=== PATIENT | female | born 1945 | race African-American/Black ===

== ENCOUNTER 2016-11-09 15:43 | Emergency (ER) | payer MEDICARE, MEDICAID ==
[~2016-11-09] VITALS: Ht 162.6 cm; Wt 83.5 kg
[~2016-11-09 15:43] MED LIST: AMLO-218 PO; ASP81 PO; FAMO20TA18 PO; LOSA100T47 PO; METO100T13 PO; SIMV20TA97 PO
[2016-11-09 15:47] VITALS: Ht 162.6 cm; Wt 83.5 kg
[2016-11-09] MEDS ORDERED: predniSONE 20 MG TAB PO STA (16:37)
[2016-11-09] MEDS ORDERED: ALBUTEROL 0.5% (NEB) 2.5 MG/0.5 ML AMP NEB STA (16:37)
[2016-11-09] MEDS ORDERED: IPRATROPIUM (NEB) 0.5 MG/2.5 ML AMP NEB STA (16:37)
--- NOTE | 2016-11-09 17:34 | ERD ---
ER Documentation Chief Complaint Date/Time DATE: 11/09/16 TIME: 17:32 Chief Complaint WHEEZING AND FEVER HPI This is a 71-year-old female who presents to the emergency room for evaluation of wheezing. According to the patient's family member was at bedside this patient has been wheezing for the past 2 days. She states the patient does have a fever which is periodic, and the patient was brought to the ER for evaluation. She states that last sentence patient had the symptoms she was diagnosed with bronchitis. Patient has been using her nephew's albuterol inhaler with mild relief of her wheezing ROS All systems reviewed and are negative except as per history of present illness. Medications Home Meds Active Scripts Famotidine* (Famotidine*) 20 Mg Tablet, 20 MG PO Q12 for 30 Days, #60 TAB Prov:JANETH FUCHS M.D. 03/28/16 Aspirin (Aspirin) 81 Mg Chew, 81 MG PO DAILY for 30 Days, #30 TAB Prov:JANETH FUCHS M.D. 03/28/16 Reported Medications Losartan Potassium* (Cozaar*) 100 Mg Tablet, 100 MG PO DAILY, #30 TAB 03/27/16 Simvastatin* (Zocor*) 20 Mg Tablet, 20 MG PO QHS, #30 TAB 03/27/16 Amlodipine Besylate* (Norvasc*) 10 Mg Tablet, 10 MG PO DAILY, TAB 03/27/16 Metoprolol Succinate* (Toprol XL*) 100 Mg Tab.sr.24h, 100 MG PO DAILY, #30 TAB 03/27/16 Allergies Allergies: Coded Allergies: No Known Allergy (Unverified , 03/27/16) PMhx/Soc History of Surgery: No Anesthesia Reaction: No Hx Neurological Disorder: No Hx Respiratory Disorders: No Hx Cardiac Disorders: Yes (HTN, HYPERCHOLESTEROL) Hx Psychiatric Problems: No Hx Miscellaneous Medical Probl: No Hx Alcohol Use: No Hx Substance Use: No Hx Tobacco Use: No Physical Exam Vitals Vital Signs Date Time Temp Pulse Resp B/P Pulse Ox O2 Delivery O2 Flow Rate FiO2 11/09/16 16:46 60 20 96 21 11/09/16 15:47 98.0 58 18 162/72 95 Physical Exam Const: No acute distress Head: Atraumatic Eyes: Normal Conjunctiva ENT: Normal External Ears, Nose and Mouth. Neck: Full range of motion..~ No meningismus. Resp: Wheezing auscultated in the bilateral upper and lower lobes Cardio: Regular rate and rhythm, no murmurs Abd: Soft, non tender, non distended. Normal bowel sounds Skin: No petechiae or rashes Back: No midline or flank tenderness Ext: No cyanosis, or edema Neur: Awake and alert Psych: Normal Mood and Affect Results 24 hrs Current Medications Medications (Trade) Dose Ordered Sig/Dirk Route PRN Reason Start Time Stop Time Status Last Admin Dose Admin Albuterol (Proventil 0.5% (Neb)) 5 mg ONCE STAT NEB 11/09/16 16:37 11/09/16 16:38 DC 11/09/16 16:45 Ipratropium [place] (Atrovent 0.02% (Neb)) 0.5 mg ONCE STAT NEB 11/09/16 16:37 11/09/16 16:38 DC 11/09/16 16:44 Prednisone (Prednisone) 60 mg ONCE STAT PO 11/09/16 16:37 11/09/16 16:38 DC 11/09/16 16:44 Procedures/MDM This 71-year-old female presents to the ER for evaluation of wheezing. When I evaluated her this patient did have wheezing on my examination. The patient was given a breathing treatment with albuterol, Atrovent. This patient also receives p.o. prednisone. On my reexamination this patient she is sitting in bed in no acute distress, her pulse ox is 100%. Her wheezing has significantly subsided. This patient will be discharged home at this time with a prescription for ProAir air, and prednisone. Patient is influenza negative. Departure Diagnosis: Primary Impression: Acute bronchitis Additional Impression: Wheezing Condition: Stable JARRETT RATLIFF DO Nov 09, 2016 17:34
[2016-11-09] MEDS ORDERED: PRED20TA PO (17:35)
[2016-11-09] MEDS ORDERED: ALBU8.5H3 INH (17:35)
[2016-11-09 17:41] VITALS: BP 140/69; PULSE 56; RESP 18; TEMP 98.3
== END 2016-11-09 17:42 | disposition home or self-care (01) ==
LOC: FTE 15:43
DX: J20.9 Acute bronchitis, unspecified (principal); I10 Essential (primary) hypertension; Z79.82 Long term (current) use of aspirin
CPT/HCPCS: 87400; 94664; 99284; J7512

== ENCOUNTER 2016-11-14 10:51 | Emergency (ER) | payer MEDICARE, MEDICAID ==
[~2016-11-14] VITALS: Wt 78.0 kg
[~2016-11-14 10:51] MED LIST changes: +ALBU8.5H3 INH; -ASP81 PO; +ASPI81TA3 PO; +PRED20TA PO; +SIMV20TA PO; -SIMV20TA97 PO
--- NOTE | 2016-11-14 11:52 | RADRPT ---
PROCEDURE: XR Chest. CLINICAL INDICATION: Productive cough. TECHNIQUE: Single frontal view. COMPARISON: 03/27/2016. FINDINGS: The heart is enlarged. There is calcification in the aorta consistent with atherosclerosis. The lungs are clear. There is no pleural effusion. There is no pneumothorax. IMPRESSION: 1. Cardiomegaly and atherosclerosis. 2. Clear lungs. RPTAT: QQ .Josesito Gutiérrez MD, MD Date Time Electronically viewed and signed by .Josesito Gutiérrez MD, MD on 11/14/2016 11:52 .R/
[2016-11-14] MEDS ORDERED: PRED20TA PO (11:59)
[2016-11-14] MEDS ORDERED: DOXY100T20 PO (11:59)
--- NOTE | 2016-11-14 17:17 | ERD ---
DATE OF SERVICE: HISTORY OF PRESENT ILLNESS: The patient is a 71-year-old female coming in complaining of a cough fo r 2 weeks. Patient was seen here 4 days ago and was given prednisone inhaler but daughter states th at she is still continuing having shortness of breath. She denies any cardiac history, she has not taken antibiotics. She denies any leg swelling, no hemoptysis. No recent travel. She has had tacti le fevers. No history of recent surgery. No cancer history. SOCIAL HISTORY: She does smoke 10 cigarettes a day. MEDICAL PROBLEMS: Hypertension. ALLERGIES TO MEDICATIONS: DENIES. SURGICAL HISTORY: Hysterectomy. REVIEW OF SYSTEMS: A 12-point review of systems was done. Refer to HPI for positives, all other sy stems negative. PHYSICAL EXAMINATION VITAL SIGNS: Temperature 98, pulse 68, blood pressure 171/71, respiratory 18, O2 saturation 99% on room air. Pain intensity is 0/10. GENERAL: The patient is well-appearing, well-nourished, no acute distress. HEENT: Atraumatic. Conjunctivae are pink. Pupils equal, round, and reactive to light. There is no s cleral icterus. Tympanic membranes clear bilaterally. Oropharynx clear. No nystagmus or photophobia . LUNGS: The patient has coarse breath sounds heard throughout. There is no focal rhonchi, no wheezi ng. Breath sounds heard in all lung noriega. No stridor, no trismus and no drooling. CHEST: Clear to auscultation bilaterally. There are no rales, wheezes or rhonchi. EXTREMITIES: There is no pitting edema noted to bilateral lower extremities. Pulses are intact. BACK: No midline or flank tenderness. SKIN: There is no apparent rash or petechia. The skin is warm and dry. EMERGENCY ROOM COURSE: The patient had a 1-view chest x-ray done in the ER which showed cardiomegal y and atherosclerosis, otherwise clear lungs. DIAGNOSIS: Bronchitis with antibiotic treatment. MEDICAL DECISION MAKING: Patient did have coarse breath sounds heard on auscultation. I will treat patient with antibiotics; however, patient is afebrile. The patient's oxygen saturation was reeval uated and she continued to be 99% with walking on room air. I have low suspicion for a CHF as patie nt does not have abnormal findings on chest x-ray and patient does not have lower pitting edema to t he extremities. I have low suspicion for PE. The patient is not tachycardic. She is not complaini ng of hemoptysis or pleuritic chest pain and I do not feel there is indication for blood work or fur ther evaluation. I have low suspicion for sepsis. Patient was given antibiotics and told to have c lose followup with primary doctor. Low suspicion for cardiac abnormality as patient is not complain ing of chest pain. Patient has a Iglesias complaining of cough. DISCHARGE: The patient is discharged stable. Patient is given a prescription for doxycycline and t old to follow up with primary care within 1 to 2 days for reevaluation. The patient was told if sym ptoms progress or worsen to return to the ER. All other questions answered at time of discharge. D ischarge summary given at the time of departure. Patient understood and complied with plan. Dictated By: JIMENA SERVIN PA for KARYNA JUÁREZ/SOCRATES Conf#: [id number] DID#: [id number]
== END 2016-11-14 12:16 | disposition home or self-care (01) ==
LOC: FTE 10:51
DX: J20.9 Acute bronchitis, unspecified (principal); F17.210 Nicotine dependence, cigarettes, uncomplicated; I10 Essential (primary) hypertension
CPT/HCPCS: 71010

== ENCOUNTER → 2018-08-07 | Outpatient (CLI) | END | disposition home or self-care (01) ==

== ENCOUNTER 2019-04-27 02:36 | Emergency (ER) | payer MEDICARE, MEDICAID ==
[~2019-04-27] VITALS: Ht 167.6 cm; Wt 79.5 kg
[~2019-04-27 02:36] MED LIST changes: -ALBU8.5H3 INH; +ALBU8.5H8 INH; +ASPI-831 PO; -ASPI81TA3 PO; +DOXY100T20 PO; +LOSA100T3 PO; -LOSA100T47 PO; +METO-336 PO; -METO100T13 PO
[2019-04-27 02:42] VITALS: Ht 167.6 cm; Wt 79.5 kg
[2019-04-27] MEDS ORDERED: METOPROLOL 5 MG INJ IV ONE (03:30)
--- NOTE | 2019-04-27 03:39 | ERD ---
ER Documentation Chief Complaint Chief Complaint Pt felt heart palpitations, hx of afib, HR 58 - 67 HPI This is a 73-year-old female with a history of chronic tobacco use, smoking about a pack daily. She is presenting today brought in by EMS for symptoms of palpitations. Triage note states patient has a history of atrial fibrillation, however patient clarifies that she has never been diagnosed with atrial fibrillation. She has no cardiac history that she knows of, she woke up from sleep with symptoms of palpitations. She denies shortness of breath, denies chest pain. There are no alleviating or aggravating factors, her symptoms are constant. ROS All systems reviewed and are negative except as per history of present illness. Medications Home Meds Active Scripts Prednisone* (Prednisone*) 20 Mg Tab, 40 MG PO DAILY for 4 Days, TAB Prov:LILLIANA SERVIN PA-C 11/14/16 Doxycycline Hyclate* (Doxycycline Hyclate*) 100 Mg Tablet.dr, 100 MG PO BID for 10 Days, TAB Prov:LILLIANA SERVIN PA-C 11/14/16 Prednisone* (Prednisone*) 20 Mg Tab, 40 MG PO DAILY for 4 Days, #8 TAB Prov:JARRETT RATLIFF DO 11/09/16 Albuterol Sulfate* (Proair HFA*) 8.5 Gm Hfa.aer.ad, 2 PUFF INH Q4, #1 INHALER Prov:JARRETT RATLIFF DO 11/09/16 Famotidine* (Famotidine*) 20 Mg Tablet, 20 MG PO Q12 for 30 Days, #60 TAB Prov:JANETH FUCHS M.D. 03/28/16 Aspirin (Aspirin) 81 Mg Chew, 81 MG PO DAILY for 30 Days, #30 TAB Prov:JANETH FUCHS M.D. 03/28/16 Reported Medications Losartan Potassium* (Cozaar*) 100 Mg Tablet, 100 MG PO DAILY, #30 TAB 03/27/16 Simvastatin* (Zocor*) 20 Mg Tablet, 20 MG PO QHS, #30 TAB 03/27/16 Amlodipine Besylate* (Norvasc*) 10 Mg Tablet, 10 MG PO DAILY, TAB 03/27/16 Metoprolol Succinate* (Toprol XL*) 100 Mg Tab.sr.24h, 100 MG PO DAILY, #30 TAB 6/4/16 Allergies Allergies: Coded Allergies: No Known Allergy (Unverified , 11/14/16) PMhx/Soc History of Surgery: No Anesthesia Reaction: No Hx Neurological Disorder: No Hx Respiratory Disorders: No Hx Cardiac Disorders: Yes (HTN, HIGH CHOLESTEROL) Hx Psychiatric Problems: No Hx Miscellaneous Medical Probl: No Hx Alcohol Use: No Hx Substance Use: No Hx Tobacco Use: No Smoking Status: Never smoker Physical Exam Vitals Vital Signs Date Temp Pulse Resp B/P (MAP) Pulse Ox O2 O2 Flow FiO2 Time Delivery Rate 04/27/19 98.0 60 20 192/87 97 02:42 (122) Physical Exam Const: Well-developed, well-nourished nontoxic Head: Atraumatic Eyes: Normal Conjunctiva ENT: Normal External Ears, Nose and Mouth. Neck: Full range of motion. No meningismus. Resp: Clear to auscultation bilaterally, no wheezes rales or rhonchi Cardio: Irregularly irregular no murmurs. Abd: Soft, non tender, non distended. Normal bowel sounds Skin: No petechiae or rashes Back: No midline or flank tenderness Ext: No cyanosis, or edema Neur: Awake and alert Psych: Normal Mood and Affect Result Diagram: 04/27/19 0305 Results 24 hrs Laboratory Tests Test 04/27/19 03:05 White Blood Count 10.4 10^3/ul Red Blood Count 5.46 10^6/ul Hemoglobin 15.5 g/dl Hematocrit 47.6 % Mean Corpuscular Volume 87.2 fl Mean Corpuscular Hemoglobin 28.4 pg Mean Corpuscular Hemoglobin Concent 32.6 g/dl Red Cell Distribution Width 13.8 % Platelet Count 255 10^3/UL Mean Platelet Volume 10.7 fl Immature Granulocytes % 0.600 % Neutrophils % 60.5 % Lymphocytes % 27.4 % Monocytes % 8.6 % Eosinophils % 2.1 % Basophils % 0.8 % Nucleated Red Blood Cells % 0.0 /100WBC Immature Granulocytes # 0.060 10^3/ul Neutrophils # 6.3 10^3/ul Lymphocytes # 2.9 10^3/ul Monocytes # 0.9 10^3/ul Eosinophils # 0.2 10^3/ul Basophils # 0.1 10^3/ul Nucleated Red Blood Cells # 0.0 10^3/ul Current Medications Medications Dose Sig/Dirk Start Time Status Last (Trade) Ordered Route PRN Stop Time Admin Dose Reason Admin Metoprolol 5 mg ONCE ONCE 04/27/19 DC 04/27/19 Tartrate IV 03:30 04/27/19 03:22 (Lopressor) 03:31 Procedures/MDM 73-year-old female presents for evaluation of palpitations. EKG showed atrial f ibrillation with rapid ventricular response. Heart rate was noted to be 110, she was given IV metoprolol. Given that she is presenting with new onset atrial fibrillation she will require admission for further work-up. Patient had no chest pain, no infectious symptoms, her chads vas score is 3 Accepting Care Team: Current data and ongoing care discussed. Primary: Manan Consulting: None Outstanding Data: none EKG: Rate/Rhythm: Atrial fibrillation irregularly irregular QRS, ST, T-waves: No changes consistent w/ acute ischemia Impression: No evidence of ischemia. a fib Chest X-ray 1V Interpreted by me: Soft Tissue: No acute abnormalities Bones: No acute abnormalities Mediastinum/Cardiac Silhouette/Lungs: Cardiomegaly Departure Diagnosis: Primary Impression: Palpitations Additional Impression: Atrial fibrillation Atrial fibrillation type: unspecified Qualified Codes: I48.91 - Unspecified atrial fibrillation Condition: Serious KARYNA PEDRO MD Apr 27, 2019 03:38
[2019-04-27] MEDS ORDERED: ENOXAPARIN 100 MG/ML SYG SC STA (03:52)
[2019-04-27] MEDS ORDERED: ACETAMINOPHEN 325 MG TAB PO PRN (04:00)
[2019-04-27] MEDS ORDERED: ONDANSETRON 4 MG INJ IV PRN (04:00)
[2019-04-27] MEDS ORDERED: MELO15TA30 ORAL (08:04)
[2019-04-27] MEDS ORDERED: OMEP20CA16 ORAL (08:04)
[2019-04-27] MEDS ORDERED: AMLODIPINE 10 MG TAB PO SCH (09:00)
[2019-04-27] MEDS ORDERED: PANTOPRAZOLE (EC) 40 MG TAB PO SCH (09:00)
[2019-04-27] MEDS ORDERED: METOPROLOL (XL) 100 MG TAB PO SCH (09:00)
[2019-04-27] MEDS ORDERED: MELOXICAM 15 MG TAB PO SCH (09:00)
--- NOTE | 2019-04-27 10:04 | HP ---
Date/Time of Note Date/Time of Note DATE: 04/27/19 TIME: 09:47 Assessment/Plan VTE Prophylaxis SCD contraindicated: other Pharmacological prophylaxis: LMWH Pharm contraindication: other Lines/Catheters IV Catheter Type (from Nrsg): Saline Lock Assessment/Plan Assessment/Plan Palpitations- Atrial fibrillation - Admit to tele - Cardiology consult- Dr Walker notified - see admission orders - CMP, CBC, LDH, TSH, T4 - Cardiac diet - 2D echo- fu - Cardiomegaly - Hypertension - Elevated BNP- r/o CHF -Heavy Tobaccoism - Provide smoking cessation -Lovenox -Protonix Patient seen in collaboration with Dr Darden Result Diagram: 04/27/19 0305 04/27/19 0305 Results 24hrs Laboratory Tests Test 04/27/19 03:05 White Blood Count 10.4 # Red Blood Count 5.46 H Hemoglobin 15.5 Hematocrit 47.6 H Mean Corpuscular Volume 87.2 Mean Corpuscular Hemoglobin 28.4 L Mean Corpuscular Hemoglobin Concent 32.6 Red Cell Distribution Width 13.8 Platelet Count 255 Mean Platelet Volume 10.7 H Immature Granulocytes % 0.600 H Neutrophils % 60.5 Lymphocytes % 27.4 Monocytes % 8.6 Eosinophils % 2.1 Basophils % 0.8 Nucleated Red Blood Cells % 0.0 Immature Granulocytes # 0.060 H Neutrophils # 6.3 Lymphocytes # 2.9 Monocytes # 0.9 Eosinophils # 0.2 Basophils # 0.1 Nucleated Red Blood Cells # 0.0 Prothrombin Time 11.8 L Prothrombin Time Ratio 0.9 INR International Normalized Ratio 0.86 Sodium Level 143 Potassium Level 4.0 Chloride Level 105 Carbon Dioxide Level 28 Anion Gap 10 Blood Urea Nitrogen 23 H Creatinine 0.89 Est Glomerular Filtrat Rate mL/min Glucose Level 86 Calcium Level 9.8 Total Bilirubin 0.2 Direct Bilirubin 0.00 Indirect Bilirubin 0.2 Aspartate Amino Transf (AST/SGOT) 25 Alanine Aminotransferase (ALT/SGPT) 15 Alkaline Phosphatase 77 Troponin I < 0.012 B-Type Natriuretic Peptide 568 H Total Protein 8.1 Albumin 4.5 Globulin 3.60 H Albumin/Globulin Ratio 1.25 Triglycerides Level 245 H Cholesterol Level 217 H LDL Cholesterol, Calculated 106 HDL Cholesterol 62 Cholesterol/HDL Ratio 3.5 Thyroid Stimulating Hormone (TSH) 2.030 HPI/ROS Admit Date/Time Admit Date/Time ROS HPI This is a 73-year-old female with a history of chronic tobacco use, smoking about a pack daily, history of atrial fibrillation is admitted for c/o of palpitations. Patient clarifies that she has never been diagnosed with atrial fibrillation. She denies shortness of breath, denies chest pain. There are no alleviating or aggravating factors, her symptoms are constant. ROS All systems reviewed and are negative except as per history of present illness. Medications Home Meds Active Scripts Prednisone* (Prednisone*) 20 Mg Tab, 40 MG PO DAILY for 4 Days, TAB Prov:LILLIANA SERVIN PA-C 11/14/16 Doxycycline Hyclate* (Doxycycline Hyclate*) 100 Mg Tablet.dr, 100 MG PO BID for 10 Days, TAB Prov:LILLIANA SERVIN PA-C 11/14/16 Prednisone* (Prednisone*) 20 Mg Tab, 40 MG PO DAILY for 4 Days, #8 TAB Prov:JARRETT RATLIFF DO 11/09/16 Albuterol Sulfate* (Proair HFA*) 8.5 Gm Hfa.aer.ad, 2 PUFF INH Q4, #1 INHALER Prov:JARRETT RATLIFF DO 11/09/16 Famotidine* (Famotidine*) 20 Mg Tablet, 20 MG PO Q12 for 30 Days, #60 TAB Prov:JANETH FUCHS M.D. 03/28/16 Aspirin (Aspirin) 81 Mg Chew, 81 MG PO DAILY for 30 Days, #30 TAB Prov:JANETH FUCHS M.D. 03/28/16 Reported Medications Losartan Potassium* (Cozaar*) 100 Mg Tablet, 100 MG PO DAILY, #30 TAB 03/27/16 Simvastatin* (Zocor*) 20 Mg Tablet, 20 MG PO QHS, #30 TAB 03/27/16 Amlodipine Besylate* (Norvasc*) 10 Mg Tablet, 10 MG PO DAILY, TAB 03/27/16 Metoprolol Succinate* (Toprol XL*) 100 Mg Tab.sr.24h, 100 MG PO DAILY, #30 TAB 03/27/16 Allergies Allergies: Coded Allergies: No Known Allergy (Unverified , 11/14/16) EKG: Rate/Rhythm: Atrial fibrillation irregularly irregular QRS, ST, T-waves: No changes consistent w/ acute ischemia Impression: No evidence of ischemia. a fib Chest X-ray Soft Tissue: No acute abnormalities Bones: No acute abnormalities Mediastinum/Cardiac Silhouette/Lungs: Cardiomegaly ENT: no complaints Respiratory: no complaints Cardiovascular: no complaints Gastrointestinal: no complaints Genitourinary: no complaints Musculoskeletal: no complaints Skin: no complaints PMH/Family/Social Past Medical History PMhx/Soc History of Surgery: No Anesthesia Reaction: No Hx Neurological Disorder: No Hx Respiratory Disorders: No Hx Cardiac Disorders: Yes (HTN, HIGH CHOLESTEROL) Hx Psychiatric Problems: No Hx Miscellaneous Medical Probl: No Hx Alcohol Use: No Hx Substance Use: No Hx Tobacco Use: No Smoking Status: Never smoker Medications Current Medications Ondansetron HCl (Zofran Inj) 4 mg ER BRIDGE PRN IV NAUSEA/VOMITING; Start 04/27/19 at 04:00; Stop 04/28/19 at 03:59 Acetaminophen (Tylenol Tab) 650 mg ER BRIDGE PRN PO .MILD PAIN 1-3 OR TEMP; Start 04/27/19 at 04:00; Stop 04/28/19 at 03:59 Coded Allergies: No Known Allergy (Unverified , 04/27/19) Past Surgical History Past Surgical Hx: appendectomy, other (Left Knee surgery) Family History Significant Family History: cancer, hypertension Social History Alcohol Use: occasionally Smoking Status: Heavy tobacco smoker Drug Use: none Exam/Review of Systems Vital Signs Vitals Vital Signs Date Temp Pulse Resp B/P (MAP) Pulse Ox O2 O2 Flow FiO2 Time Delivery Rate 04/27/19 90 18 144/66 97 Room Air 06:59 (92) 04/27/19 98.0 02:42 Exam Constitutional: alert, well developed Psych: nl mood/affect Head: atraumatic Eyes: nl lids, nl sclera ENMT: nl external ears & nose Neck: non-tender Respiratory: clear to auscultation Cardiovascular: nl pulses, other (s1s2) Gastrointestinal: soft, non-tender Musculoskeletal: nl extremities to inspection Extremities: normal pulses Neurological: nl speech Skin: nl turgor Lymph: nontender SUSANNE GARCIA Apr 27, 2019 09:57
--- NOTE | 2019-04-27 11:21 | RADRPT ---
Echocardiogram Report Patient Name: LEO GAUTAMPatient ID: [id number] : 1945 (73y 9m)Study Date: 04/27/2019 10:06:41 AM Gender: FAccession #: [id number] Tech: Anderson Agueda [facility] Location: ER-5 Ref.Physician: SUSANNE GARCIA Height(Cm): BSA: Weight(Kg): Quality: AdequateOrder Physician: SUSANNE GARCIA Account #: Procedures: Echocardiographic Report: Transthoracic echocardiogram with complete 2D, M-Mode, and doppler examination. Indications: New Atrial Fibrillation. Measurements: 2D/M Mode Doppler Measurement Value Normal Range Measurement Value Normal Range LVIDd 2D 4.4 [ 3.8 - 5.2 ] cm AV Peak Temo 1.5 [ 100.0 - 170.0 ] cm/sec LVIDs 2D 2.8 [ 2.2 - 3.5 ] cm AV Peak PG 9.0 [ 2.0 - 9.0 ] mmHg LVPWd 2D 1.3 [ 0.6 - 0.9 ] cm LVOT Peak Temo 1.1 [ 70.0 - 110.0 ] cm/sec IVSd 2D 1.9 [ 0.6 - 0.9 ] cm LVOT Peak PG 5.0 [ 2.0 - 6.0 ] mmHg AoR Diam 2D 3.2 [ 2.3 - 3.1 ] cm MV E Peak Temo 0.5 [ 60.0 - 130.0 ] cm/sec EDV 2D 87.7 [ 46.0 - 106.0 ] ml MV A Peak Temo 0.9 [ 100.0 - 120.0 ] cm/sec ESV 2D 28.8 [ 14.0 - 42.0 ] ml MV E/A 0.6 [ 0.8 - 1.5 ] ratio EF 2D 67.2 [ 54.0 - 74.0 ] percent MV Decel Time 278 [ 104 - 258 ] msec LA Dimen 2D 3.6 [ 2.7 - 3.8 ] cm MV E/A 0.6 [ 0.8 - 1.5 ] ratio TR Peak Temo 3.1 [ 100.0 - 280.0 ] cm/sec TR Peak PG 38.0 mmHg RVSP 41.0 [ 10.0 - 36.0 ] mmHg Findings: Left Ventricle: Normal left ventricular systolic function. Normal left ventricular cavity size. Severe asymmetric septal hypertrophy. Ejection fraction is visually estimated at 60 %. Tissue Doppler/Mitral Doppler indices are indeterminate in this study due to the presence of atrial fibrillation. Right Ventricle: Normal right ventricular size. Normal right ventricular systolic function. Left Atrium: The left atrium is normal in size. Right Atrium: The right atrium is normal in size. Mitral Valve: Mild mitral leaflet calcification. Mild mitral annular calcification. Trace mitral regurgitation. Aortic Valve: No significant aortic stenosis or insufficiency. Aortic cusps appear mildly calcified. Tricuspid Valve: Normal appearance of the tricuspid valve. The estimated Peak RVSP is 41 mmHg. There is mild tricuspid regurgitation. Pericardium: Normal pericardium with no significant pericardial effusion. Aorta: Normal aortic root. IVC: Normal size and normal respiratory collapse consistent with normal right atrial pressure. Conclusions: Normal left ventricular systolic function. Normal left ventricular cavity size. Severe asymmetric septal hypertrophy. Ejection fraction is visually estimated at 60 %. Tissue Doppler/Mitral Doppler indices are indeterminate in this study due to the presence of atrial fibrillation. n. Normal appearance of the tricuspid valve. The estimated Peak RVSP is 41 mmHg. There is mild tricuspid regurgitation. Mild mitral leaflet calcification. Mild mitral annular calcification. Trace mitral regurgitation. No significant aortic stenosis or insufficiency. Aortic cusps appear mildly calcified. Electronically Signed By: Adrian Arevalo 2019-04-27 11:20:49 PDT
[2019-04-27 11:52] VITALS: BP 165/57; PULSE 68; RESP 18
[2019-04-27] MEDS ORDERED: ENOXAPARIN 80 MG/0.8 ML SYG SC SCH (21:00)
[2019-04-27] MEDS ORDERED: ATORVASTATIN 20 MG TAB PO SCH (21:00)
[2019-04-28] MEDS ORDERED: LOSARTAN 50 MG TAB PO SCH (09:00)
== END 2019-04-27 14:56 | disposition home or self-care (01) ==
LOC: E/R 02:36 → CANBEDREQ 14:56
DX: I48.91 Unspecified atrial fibrillation (principal); I10 Essential (primary) hypertension; Z79.82 Long term (current) use of aspirin; Z87.891 Personal history of nicotine dependence
CPT/HCPCS: 36415; 71045; 80053; 80061; 83880; 84443; 84484; 85025; 85610; 93005; 93306; 96372; 96374; 99285; J1650